=== PATIENT | female | born 1985 | race African-American/Black ===

== ENCOUNTER 2019-04-22 02:04 | Inpatient (IN) | payer OTHER ==
[2019-04-22] MEDS ORDERED: MINERAL OIL ONE (02:54)
[2019-04-22] MEDS ORDERED: XYLOCAINE 2% INFILTRATI ONE ×2 (03:06→03:24)
[2019-04-22 03:08] LABS: Hemoglobin 11.5 gm/dl (10.1-14.3); Mean Corpuscular HGB Conc 34 % (30-34); Mean Corpuscular Volume 79 fl (79-97); Platelet Count 171 K/mm3 (140-440); Red Blood Count 4.28 M/mm3 (3.65-5.03); Red Cell Distribution Width 13.9 % (13.2-15.2)
[2019-04-22] MEDS ORDERED: BRETHINE SUB-Q PRN (03:24)
[2019-04-22] MEDS ORDERED: MINERAL OIL PO PRN (03:24)
[2019-04-22] MEDS ORDERED: BRETHINE IVP PRN (03:24)
[2019-04-22] MEDS ORDERED: NORCO 5/325 PO PRN (03:34)
[2019-04-22] MEDS ORDERED: DULCOLAX PR PRN (03:34)
[2019-04-22] MEDS ORDERED: TUCKS PAD TP PRN (03:34)
[2019-04-22] MEDS ORDERED: BENADRYL PO PRN (03:34)
--- NOTE | 2019-04-22 03:46 | History and Physical Report ---
History of Present Illness Date of examination: 04/22/19 Date of admission: 04/22/19 02:27 Chief complaint: Intense Labor Pains History of present illness: Late Entry to Care; Uncomplicated course. Past History Past Medical History: no pertinent history Past Surgical History: no surgical history Social history: no significant social history, - Obstetrical History Expected Date of Delivery: 04/29/19 Actual Gestation: 39 Week(s) 0 Day(s) : 1 Medications and Allergies Allergies Allergy/AdvReac Type Severity Reaction Status Date / Time No Known Allergies Allergy Unverified 04/22/19 02:58 Active Meds: Active Medications Acetaminophen/Hydrocodone Bitart (Chalmers 5/325) 2 each PO Q6H PRN PRN Reason: Pain, Moderate (4-6) Bisacodyl (Dulcolax) 10 mg KS BID PRN PRN Reason: Constipation Diphenhydramine HCl (Benadryl) 25 mg PO Q6H PRN PRN Reason: Itching Ephedrine Sulfate (Ephedrine Sulfate) 10 mg IV Q2M PRN PRN Reason: Hypotension Oxytocin/Sodium Chloride (Pitocin/Ns 20 Unit/1000ml Drip) 20 units in 1,000 mls @ 125 mls/hr IV DIRECT JOSÉ MIGUEL Lactated Ringer's (Lactated Ringers) 1,000 mls @ 125 mls/hr IV DIRECT JOSÉ MIGUEL Ibuprofen (Ibuprofen) 600 mg PO Q6H JOSÉ MIGUEL Mineral Oil (Mineral Oil) 30 ml PO QHS PRN PRN Reason: Constipation Multivitamins/Iron/Calcium ( Vitamin) 1 each PO QDAY JOSÉ MIGUEL Sodium Chloride (Sodium Chloride Flush Syringe 10 Ml) 10 ml IV PRN NR Terbutaline Sulfate (Brethine) 0.25 mg SUB-Q ONCE PRN PRN Reason: Hyperstimulation/Hypertonicity Terbutaline Sulfate (Brethine) 0.25 mg IVP ONCE PRN PRN Reason: Hyperstimulation/Hypertonicity Witch Funmilayo/Glycerin (Tucks Pad) 1 each TP PRN PRN PRN Reason: Hemorrhoid/cleansing/soothing Review of Systems All systems: negative - Vital Signs Vital signs: Vital Signs Pulse BP 78 112/55 04/22/19 02:22 04/22/19 02:22 Temp Pulse Resp BP Pulse Ox 99 F 85 20 100/57 100 04/22/19 02:30 04/22/19 03:39 04/22/19 02:30 04/22/19 03:39 04/22/19 02:30 - Physical Exam Breasts: Positive: normal Cardiovascular: Regular rate Lungs: Positive: Clear to auscultation, Normal air movement Abdomen: Positive: normal appearance, soft Genitourinary (Female): Positive: normal external genitalia, normal perenium Vagina: Positive: normal moisture Uterus: Positive: enlarged, normal contour Anus/Rectum: Positive: normal perianal skin - Obstetrical FHR: category 1 Uterine Contraction Monitor Mode: External Cervical Dilatation: 10 (AROM of a small amount of clear fluid at 0251) Cervical Effacement Percentage: 100 station: 2 Uterine Contraction Pattern: Regular Uterine Tone Measurement Phase: Resting Uterine Contraction Intensity: Strong/Firm Results Result Diagrams: 04/22/19 02:36 Abnormal lab results 04/22/19 Range/Units 02:36 WBC 18.0 H (4.5-11.0) K/mm3 MCH 27 L (28-32) pg All other labs normal. Assessment and Plan A: IUP @ 39 Weeks Category I Tracing Active Labor GBS Negative P: Admit to L&D per Routine Orders AROM Anticipate
--- NOTE | 2019-04-22 03:54 | Procedure Note ---
OB Delivery Note - Delivery Date of Delivery: 04/22/19 (0258) Surgeon: KRYSTIN BONILLA Estimated blood loss: 200cc - Vaginal Delivery presentation: vertex Delivery position: OA Intrapartum events: none Delivery induction: none Delivery augmentation: rupture of membranes Delivery monitor: external FHT, external uterine Route of delivery: Delivery placenta: spontaneous Delivery cord: 3 umbilical vessels Episiotomy: none Delivery laceration: 1st degree Delivery repair: vicryl Anesthesia: local Delivery comments: of a live 7'5 male infant over a 1st degree vaginal laceration without pain control with Apgars of 8 and 9 at 0258 on 04/22/2019. Infant directly to maternal abd/chest, skin to skin contact. Spontaneous delivery of placenta complete and intact with Partida side presenting at 0302. Fundus is firm and midline located 4 below the U. Lochia is scant. Delayed cord clamping and cu tting; Cord cut by the Father of the Baby. Vaginal laceration repaired with 2-[address]-1 under local 2% Lidocaine. Placenta discarded. - Infant A at 1 minute: 8 at 5 minutes: 9 Infant Gender: Male (7'5)
[2019-04-22] MEDS ORDERED: PITOCin/NS 20 UNIT/1000ML DRIP 20 UNITS/1,000 ML BAG IV SCH (04:00)
[2019-04-22] MEDS ORDERED: LACTATED RINGERS 1,000 ML IV SCH (04:00)
[2019-04-22] MEDS ORDERED: SODIUM CHLORIDE FLUSH SYRINGE 10 ML IV NR (04:00)
[2019-04-22] MEDS: IBUPROFEN PO SCH ×4 (04:46→23:34)
[2019-04-22] MEDS: PRENATAL VITAMIN PO SCH (12:11)
[2019-04-22 15:34] LABS: Hematocrit 30.4 % (30.3-42.9); Hemoglobin 9.9 gm/dl (10.1-14.3)
[2019-04-23] MEDS: IBUPROFEN PO SCH ×2 (05:42→13:49)
--- NOTE | 2019-04-23 07:51 | Progress Note ---
Assessment and Plan A: PPD#1 s/p Asymptomatic anemia Stable P: Routine PP orders Discharge home today Routine PP follow-up in 6 weeks Uncertain on contraception Subjective - Subjective Date of service: 04/23/19 Principal diagnosis: PPD#1 s/p Interval history: See H&P and delivery note Patient reports: appetite normal, voiding normally, pain well controlled, flatus, ambulating normally, no dizzy ambulation, no bowel movement, no nauseated [place]: doing well Objective - Vital Signs Latest vital signs: Vital Signs Temp Pulse Resp BP Pulse Ox 04/23/19 05:42 18 04/22/19 23:34 20 04/22/19 23:30 98.4 F 92 H 18 99/54 98 04/22/19 18:21 16 04/22/19 16:15 97.8 F 89 20 96/57 96 04/22/19 13:30 16 04/22/19 12:30 16 04/22/19 11:54 97.9 F 92 H 20 100/44 98 Intake and Output 04/22/19 04/22/19 04/23/19 15:59 23:59 07:59 Intake Total 480 480 Balance 480 480 Intake: Oral 480 480 Other: Total, Intake Amount 120 240 # Voids Void 1 1 - Exam Breasts: Present: normal Cardiovascular: Present: Regular rate, Normal S1, Normal S2, No murmurs Lungs: Present: Clear to auscultation, Normal air movement Abdomen: Present: normal appearance, soft, normal bowel sounds. Absent: distention Vulva: both: normal Uterus: Present: firm, fundal height below umbilicus (-1) Extremities: Present: normal Deep Tendon Reflex Grade: Normal +2 - Labs Labs: Abnormal lab results 04/22/19 Range/Units Unknown Hgb 9.9 L (10.1-14.3) gm/dl
--- NOTE | 2019-04-23 07:54 | Discharge Summary ---
Providers - Providers Date of Admission: 04/22/19 02:27 Date of discharge: 04/23/19 Attending physician: DELON GARCIA MD Primary care physician: [facility] Hospital[facility] Reason for admission: active labor, IUP at term Delivery: Procedure details: See delivery note Episiotomy: none Laceration: 1st degree Other procedures: none complications: none Discharge diagnosis: IUP at term delivered baby: male Condition at discharge: Good Disposition: DC-30 STILL A PATIENT Plan - Provider Discharge Summary Activity: routine, no sex for 6 weeks, no heavy lifting 4 weeks, no strenuous exercise Diet: routine Instructions: routine Additional instructions: [] Smoking cessation referral if applicable(refer to patient education folder for contact #) [] Refer to [facility]'s [facility] Booklet Call your doctor immediately for: * Fever > 100.5 * Heavy vaginal bleeding ( >1 pad per hour) * Severe persistent headache * Shortness of breath * Reddened, hot, painful area to leg or breast * Drainage or odor from incision. * Keep incision clean and dry at all times and follow doctor's instructions regarding bathing/showering - Follow up plan Follow up: KRYSTIN BONILLA CNM [Advanced Practice Nurse] - 6 Weeks
[2019-04-23] MEDS: PRENATAL VITAMIN PO SCH (10:23)
[2019-04-23 17:39] VITALS: BP 100/56
== END 2019-04-23 17:43 | disposition home or self-care (01) | DRG 806 ==
LOC: TRG 02:04 → LD 02:27 → OB 04:51
PROVIDERS: ADMIT Obstetrics & Gynecology; ATTEND Obstetrics & Gynecology
PROC: 10E0XZZ Delivery of Products of Conception, External Approach (ICD-10-PCS; principal; 2019-04-22)
PROC: 0HQ9XZZ Repair Perineum Skin, External Approach (ICD-10-PCS; 2019-04-22)
PROC: 10907ZC Drainage of Amniotic Fluid, Therapeutic from Products of Conception, Via Natural or Artificial Opening (ICD-10-PCS; 2019-04-22)
DX: O99.02 Anemia complicating childbirth (principal); D62 Acute posthemorrhagic anemia; Z37.0 Single live birth; D64.9 Anemia, unspecified; O70.0 First degree perineal laceration during delivery; Z3A.39 39 weeks gestation of pregnancy
CPT/HCPCS: 36415; 85014; 85018; 85027; 86592; 86850; 86900; 86901; G0378